=== PATIENT | female | born 1990 | race Caucasian/White ===

== ENCOUNTER → 2017-04-22 | Outpatient (CLI) | payer OTHER ==
[~2017-04-22] MED LIST: ACET50TA PO; ALBU20IN INH; AUGM875T27 PO; IBUP80TA PO; LEVA750T7 PO; NICO14DI3 TD; PRED10TA PO; PRED20TA PO; PRED5TA PO; PRENTAB74 PO; SYMB16INH INH; XOPEAER IN; ZOFR20TA PO; ventolin hfa INH
--- NOTE | 2017-04-22 21:03 | REP ---
Clinical: Pain. Technique: AP, lateral, bilateral oblique views right first digit . Findings: The osseous structures and joint spaces are intact and normal. There is no evidence for acute fracture or dislocation. Surrounding soft tissues are unremarkable. No subcutaneous emphysema or radiodense foreign body. Impression: Essentially normal examination . No acute fracture or dislocation. Signed by George Gee MD 04/22/2017 05:55 P
== END ==
LOC: M RAD 19:56
PROVIDERS: ATTEND Physician Assistant
DX: M79.644 Pain in right finger(s) (principal)

== ENCOUNTER → 2017-07-01 | Outpatient (REF) | payer OTHER | LOC: M LAB REF 11:55 | DX: L02.511 Cutaneous abscess of right hand (principal) | CPT/HCPCS: 87070 ==

== ENCOUNTER → 2018-01-11 | Outpatient (CLI) | payer OTHER ==
[2018-01-12 11:01] LABS: BASO # 0.1 10^3/uL (0.0-0.2); BASO % 0.5 % (0.0-1.0); EOS # 0.3 10^3/uL (0.0-0.50); EOS % 1.9 % (0.0-3.0); HEMATOCRIT 40.3 % (36.0-47.0); HEMOGLOBIN 13.4 g/dl (12.0-15.5); IMMATURE GRANULOCYTE % 0.5 % (0-3.0); LYMPH % 15.3 % (24.0-44.0); MEAN CORPUSCULAR HEMOGLOBIN 29.7 pg (27.0-33.0); MEAN CORPUSCULAR HGB CONC 33.3 g/dl (32.0-36.5); MEAN CORPUSCULAR VOLUME 89.4 fl (80.0-96.0); MONO # 1.2 10^3/uL (0.0-0.8); MONO % 8.9 % (0.0-5.0); NEUTROPHILS # 9.6 10^3/uL (1.8-7.7); NEUTROPHILS % 72.9 % (36.0-66.0); PLATELET COUNT, AUTOMATED 314 10^3/uL (150-450); RED BLOOD COUNT 4.51 10^6/uL (4.00-5.40); RED CELL DISTRIBUTION WIDTH 13.5 % (11.5-14.5); WHITE BLOOD COUNT 13.2 10^3/uL (4.0-10.0)
[2018-01-12 13:52] LABS: CHLAMYDIA DNA AMPLIFICATION NEGATIVE (NEGATIVE); GC DNA AMPLIFICATION NEGATIVE (NEGATIVE)
[2018-01-12 16:10] LABS: HEPATITIS C VIRUS ABY INDEX 0.2 INDEX (<0.8)
[2018-01-12 16:10] LABS: HBsAg Prenatal NEGATIVE (NEGATIVE)
[2018-01-12 16:11] LABS: RUBELLA IgG QUALITATIVE IMMUNE (IMMUNE)
[2018-01-13 19:33] LABS: HIV 1&2 SCREEN CENTAUR NEGATIVE (NEGATIVE)
== END ==
LOC: M SMT 13:54
DX: Z34.81 Encounter for supervision of other normal pregnancy, first trimester (principal); Z3A.08 8 weeks gestation of pregnancy
CPT/HCPCS: 86762

== ENCOUNTER → 2018-03-05 | Outpatient (CLI) | payer OTHER ==
[2018-03-05 16:43] LABS: BASO % 0.3 % (0.0-1.0); EOS # 0.3 10^3/uL (0.0-0.50); EOS % 2.4 % (0.0-3.0); HEMATOCRIT 34.7 % (36.0-47.0); HEMOGLOBIN 11.6 g/dl (12.0-15.5); IMMATURE GRANULOCYTE % 0.5 % (0-3.0); LYMPH # 2.8 10^3/uL (1.5-6.5); MEAN CORPUSCULAR HEMOGLOBIN 30.1 pg (27.0-33.0); MEAN CORPUSCULAR HGB CONC 33.4 g/dl (32.0-36.5); MEAN CORPUSCULAR VOLUME 90.1 fl (80.0-96.0); MONO # 0.8 10^3/uL (0.0-0.8); MONO % 6.2 % (0.0-5.0); NEUTROPHILS # 8.7 10^3/uL (1.8-7.7); NEUTROPHILS % 68.6 % (36.0-66.0); PLATELET COUNT, AUTOMATED 304 10^3/uL (150-450); RED BLOOD COUNT 3.85 10^6/uL (4.00-5.40); RED CELL DISTRIBUTION WIDTH 13.2 % (11.5-14.5); WHITE BLOOD COUNT 12.7 10^3/uL (4.0-10.0)
[2018-03-05 17:11] LABS: ALBUMIN 3.6 GM/DL (3.2-5.2); ALBUMIN/GLOBULIN RATIO 1.06 (1.00-1.93); ALKALINE PHOSPHATASE 70 U/L (45-117); ALT/SGPT 38 U/L (12-78); ANION GAP 8 MEQ/L (8-16); AST/SGOT 25 U/L (7-37); BILIRUBIN,TOTAL 0.3 MG/DL (0.2-1.0); BLOOD UREA NITROGEN 6 MG/DL (7-18); CALCIUM LEVEL 8.8 MG/DL (8.5-10.1); CARBON DIOXIDE LEVEL 26 MEQ/L (21-32); CHLORIDE LEVEL 104 MEQ/L (98-107); FREE T4 0.95 NG/DL (0.76-1.46); GLOMERULAR FILTRATION RATE > 60.0 (>60); GLUCOSE, FASTING 60 MG/DL (70-100); POTASSIUM SERUM 3.9 MEQ/L (3.5-5.1); SODIUM LEVEL 138 MEQ/L (136-145)
== END ==
LOC: M WUC 14:44
DX: M54.5 Low back pain (principal)
CPT/HCPCS: 84443

== ENCOUNTER → 2018-03-11 | Outpatient (CLI) | payer OTHER | LOC: M RAD 11:52 | DX: Z36.89 Encounter for other specified antenatal screening (principal); Z3A.17 17 weeks gestation of pregnancy | CPT/HCPCS: 76817 ==

== ENCOUNTER → 2018-04-01 | Outpatient (CLI) | payer OTHER | LOC: M RAD 17:05 | DX: O44.42 Low lying placenta NOS or without hemorrhage, second trimester (principal); Z36.89 Encounter for other specified antenatal screening; Z3A.20 20 weeks gestation of pregnancy | CPT/HCPCS: 76817 ==

== ENCOUNTER → 2018-05-17 | Outpatient (CLI) | payer OTHER ==
[~2018-05-17] MED LIST changes: -ZOFR20TA PO; +ZOFR4TAB16 PO
[2018-05-17 13:39] LABS: BASO # 0.1 10^3/uL (0.0-0.2); BASO % 0.7 % (0.0-1.0); EOS # 0.2 10^3/uL (0.0-0.50); EOS % 1.6 % (0.0-3.0); HEMATOCRIT 31.8 % (36.0-47.0); HEMOGLOBIN 10.3 g/dl (12.0-15.5); LYMPH # 1.9 10^3/uL (1.5-6.5); LYMPH % 13.4 % (24.0-44.0); MEAN CORPUSCULAR HEMOGLOBIN 30.7 pg (27.0-33.0); MEAN CORPUSCULAR HGB CONC 32.4 g/dl (32.0-36.5); MEAN CORPUSCULAR VOLUME 94.9 fl (80.0-96.0); MONO # 0.7 10^3/uL (0.0-0.8); NEUTROPHILS # 10.6 10^3/uL (1.8-7.7); NEUTROPHILS % 76.2 % (36.0-66.0); PLATELET COUNT, AUTOMATED 206 10^3/uL (150-450); RED BLOOD COUNT 3.35 10^6/uL (4.00-5.40); WHITE BLOOD COUNT 13.8 10^3/uL (4.0-10.0)
== END ==
LOC: M LAB 11:47
PROVIDERS: ATTEND Specialist
DX: Z36.89 Encounter for other specified antenatal screening (principal)

== ENCOUNTER → 2018-05-18 | Outpatient (CLI) | payer OTHER ==
--- NOTE | 2018-05-19 02:32 | NUR ---
L&D Triage Note Reason for visit: labor check Subjective 27 year old at 25+3 weeks gestation. Complains of frequent, painful contractions and questions LOF. Had intercourse earlier today. Denies vaginal bleeding or continual loss of fluid. Reports regular, frequent movement. course uncomplicated thus far. 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 No murmurs, gallops, rubs Lungs: Clear to auscultation bilaterally. No wheezes, crackles, rales or rhonchi Abdomen: Uterine fundus , nontender and fundal height consistent with gestational age. No guarding or rebound tenderness. Pelvic: SSE: closed, no pooling/blood/foul odor/abnormal discharge. Neg nitrazine/ferning. SVE: closed/long/high TVUS,sullivan: CL 3.7cm, no funneling or dynamic changes. Cephalic, MVP >2cm. Extremities: nonedematous, nontender. External monitoring/NST:Reactive, normal baseline, moderate variability, no decelerations. Tocodynamometer: contractions are not present Assessment/Plan 27 year old at 25+3 weeks gestation. No evidence of active labor or ruptured membranes. Reassuring maternal and status. -Routine labor, movement/kick count, and obstetric emergency precautions reviewed. -Follow-up with appointment as currently scheduled. Dr. Jose Carlos Silva, Efra.O., F.A.C.O.G.
== END ==
LOC: M LDO 22:09
PROVIDERS: ATTEND Obstetrics & Gynecology
DX: O47.9 False labor, unspecified (principal); Z3A.25 25 weeks gestation of pregnancy

== ENCOUNTER → 2018-06-21 | Outpatient (CLI) | payer OTHER ==
--- NOTE | 2018-06-22 08:29 | REP ---
Clinical: History of low-lying placenta. Comparison: 04/01/2018 . Findings: Examination demonstrates a single live intrauterine in cephalic presentation. motion is identified by technologist. Placenta is noted posterior and grade II without evidence for placenta previa or abruption. Placental tip 3.1 cm from the closed internal os. Amniotic fluid volume is normal. Cervix measures 4.0 cm in length and appears closed. No evidence for nuchal cord. Gestational age by LMP 31 weeks 4 day with YAHIR 08/19/1989 . Gestational age by current measurements the 31 weeks 0 days with YAHIR 08/23/2018 . FHR equals 139 beats per minute. Estimated weight 1699 grams ( 33rd percentile). Amniotic fluid index: 17.6 cm (8.7 - 24.0) Umbilical cord SD ratio: 3.20 (2.50 - 3.50). Small left hydrocele warrants evaluation. Impression: 1. Single live intrauterine in cephalic presentation demonstrating appropriate interval growth. 2. Placenta is identified posteriorly, grade II and without evidence for placenta previa or abruption. 3. Small left hydrocele likely transient but warrant evaluation. Electronically Signed by George Gee MD 06/22/2018 08:20 A
== END ==
LOC: M RAD 13:10
PROVIDERS: ATTEND Specialist
DX: O44.43 Low lying placenta NOS or without hemorrhage, third trimester (principal); O35.8XX0 Maternal care for other (suspected) fetal abnormality and damage, not applicable or unspecified; Z3A.31 31 weeks gestation of pregnancy

== ENCOUNTER → 2018-07-22 | Outpatient (REF) | payer OTHER | LOC: M LAB REF 13:05 | PROVIDERS: ATTEND Advanced Practice Midwife | DX: Z34.83 Encounter for supervision of other normal pregnancy, third trimester (principal) ==

== ENCOUNTER 2018-08-13 23:47 | Inpatient (IN) | payer OTHER ==
[~2018-08-13] VITALS: Ht 154.9 cm; Wt 63.0 kg
[~2018-08-13 23:47] MED LIST changes: -ACET50TA PO; +MAPA500T17 PO; +PRED-351 PO; -PRED10TA PO
[2018-08-14] VITALS (7 sets, daily range): BP systolic 109–130; BP diastolic 55–76
[2018-08-14] MEDS ORDERED: LACTATED RINGER'S 1000 ML IV STA (00:28)
[2018-08-14] MEDS ORDERED: LR 1,000 ML IV SCH (00:28)
[2018-08-14] MEDS ORDERED: OXYTOCIN 30 UNITS IN 0.9% NaCl 500ML IV BAG (J2590) As Ordered ONE (00:29)
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
[2018-08-14 00:56] LABS: HEMATOCRIT 34.7 % (36.0-47.0); HEMOGLOBIN 11.7 g/dl (12.0-15.5); MEAN CORPUSCULAR HEMOGLOBIN 29.8 pg (27.0-33.0); MEAN CORPUSCULAR HGB CONC 33.7 g/dl (32.0-36.5); MEAN CORPUSCULAR VOLUME 88.3 fl (80.0-96.0); PLATELET COUNT, AUTOMATED 179 10^3/uL (150-450); RED BLOOD COUNT 3.93 10^6/uL (4.00-5.40); WHITE BLOOD COUNT 19.1 10^3/uL (4.0-10.0)
[2018-08-14] MEDS ORDERED: OXYTOCIN DRIP 30 UNITS in APPROPRIATE DILUENT 1 EA IV SCH (01:47)
[2018-08-14] MEDS ORDERED: RHOGAM 300 MCG (1500 IU) INJ (J2790) IM SCH (02:00)
[2018-08-14] MEDS ORDERED: DIBUCAINE 1% OINTMENT 30GM TOP PRN (02:00)
[2018-08-14] MEDS ORDERED: METHYLERGONOVINE MALEATE 0.2 MG/ML VIAL (J2210) IM ONE (02:00)
[2018-08-14] MEDS ORDERED: DOCUSATE SODIUM 100 MG CAP PO PRN (02:00)
[2018-08-14] MEDS ORDERED: MOM 30ML SUSPENSION UDC PO PRN (02:00)
[2018-08-14] MEDS ORDERED: MEASLES,MUMPS,RUBELLA VACCINE INJ (MMR-II) (90707) SC SCH (02:00)
[2018-08-14] MEDS ORDERED: ACETAMINOPHEN 500 MG TAB PO PRN (02:00)
[2018-08-14 02:03] LABS: CORD GAS ABE A -6.4; CORD GAS ABE V -5.5; CORD GAS HCO3 A 23.8 MEQ/L; CORD GAS HCO3 V 21.1 MEQ/L; CORD GAS O2 SAT A 43.2 %; CORD GAS O2 SAT V 52.6 %; CORD GAS PCO2 A 66.1 mmHg; CORD GAS PCO2 V 44.7 mmHg; CORD GAS PH A 7.175 UNITS; CORD GAS PH V 7.291 UNITS; CORD GAS PO2 A 20.6 mmHg; CORD GAS PO2 V 20.6 mmHg; CORD GAS SBC V 18.9 MEQ/L; CORD GAS TCO2 A 25.9 MEQ/L; CORD GAS TCO2 V 22.4 MEQ/L
--- NOTE | 2018-08-14 02:10 | DNPDOC ---
[facility] Delivery Note Delivery Note DATE OF DELIVERY: August 14, 2018 PREDELIVERY DIAGNOSIS: 39+2/7 weeks' gestation and labor. POST DELIVERY DIAGNOSIS: Delivered. PROCEDURE: Spontaneous vaginal delivery. PROVIDER: Elizabeth Brito CNM ANESTHESIA: None. ESTIMATED BLOOD LOSS: 400 mL. FINDINGS: 7 pound 8 ounce, 3390gm male infant, Score 3/7/10, occult body cord times 1. DELIVERY SUMMARY: Patient is a 28-year-old 4 now para 4-0-0-4 who was admitted to labor and delivery for active labor. She reported onset UC 2211 tonight. Upon arrival she was found to be 6-7 cm by nursing. Initial provider exam shortly after was 8cm. SROM small amount clear fluid 0043. FH decels to 60's, O2 via mask. Viable male delivered precipitously MUNIR, compound with left anterior arm though occult body cord @ 0107. Slow to transition, cord doubly clamped and cut, to warmer for stimulation and evaluation. Apgars 3/7/10. Cord gases arterial 7.175. BE -6.4 and venous 7.291, BE -5.5. Placenta moreira, intact with 3vessel cord @ 0115. Fundus firmed with massage and IV pitocin bolus. Methergine 0.2mg IM given for persistent trickling with good hemostasis. Perineum intact. Sponge sharp and instrument count correct. Elizabeth Brito CNM Aug 14, 2018 01:57
[2018-08-14] MEDS: METHYLERGONOVINE MALEATE 0.2 MG TAB PO SCH ×4 (05:23→23:39)
[2018-08-14] MEDS: IBUPROFEN 800 MG TAB PO PRN ×2 (05:24→18:27)
[2018-08-14] MEDS: PRENATAL VITAMINS CHEWABLE TABLET PO SCH (08:23)
[2018-08-14] MEDS ORDERED: TENO30TAB PO (10:57)
[2018-08-14] MEDS ORDERED: PRENTAB9 PO (10:57)
[2018-08-15 06:00] VITALS: BP 96/52
[2018-08-15] MEDS ORDERED: METHYLERGONOVINE MALEATE 0.2 MG TAB PO PRN (06:00)
[2018-08-15] MEDS: PRENATAL VITAMINS CHEWABLE TABLET PO SCH (08:10)
[2018-08-15] MEDS ORDERED: INFLUENZA QUADRIVALENT PF VACCINE 0.5ML SYRINGE (90686) IM ONE (09:00)
[2018-08-15] MEDS ORDERED: ACET-683 PO (13:29)
[2018-08-15] MEDS ORDERED: IBUP80TA PO (13:29)
== END 2018-08-15 14:15 | disposition home or self-care (01) | DRG 560 ==
LOC: M LDO 23:47 → M LDI 08-14 00:27 → M OBS 08-14 03:12
PROVIDERS: ADMIT Advanced Practice Midwife; ATTEND Advanced Practice Midwife
PROC: 10E0XZZ Delivery of Products of Conception, External Approach (ICD-10-PCS; principal; 2018-08-14)
DX: O62.3 Precipitate labor (principal); O32.6XX0 Maternal care for compound presentation, not applicable or unspecified; Z3A.39 39 weeks gestation of pregnancy; O69.82X0 Labor and delivery complicated by other cord entanglement, without compression, not applicable or unspecified; Z37.0 Single live birth; O99.334 Smoking (tobacco) complicating childbirth; F17.210 Nicotine dependence, cigarettes, uncomplicated

== ENCOUNTER → 2018-10-15 | Outpatient (REF) | payer OTHER ==
[~2018-10-15] MED LIST changes: +ACET-683 PO; +PRENTAB9 PO; +TENO30TAB PO
== END ==
LOC: M LAB REF 17:18
PROVIDERS: ATTEND Specialist
DX: Z12.4 Encounter for screening for malignant neoplasm of cervix (principal)

== ENCOUNTER → 2020-03-19 | Outpatient (CLI) | payer OTHER ==
--- NOTE | 2020-03-20 04:53 | REP ---
INDICATION: HEPATOMAGLY COMPARISON: None. TECHNIQUE: Real time pineda scale ultrasound examination using curved array transducer. FINDINGS: Liver and pancreas are normal in contour, size, and echogenicity without focal hepatic or pancreatic abnormalities appreciated. No evidence for hepatomegaly or hepatosteatosis by current examination. The gallbladder is normal and without gallstones, wall thickening, or pericholecystic fluid. No biliary ductal dilatation is appreciated and the common bile duct measures 3.0 mm mm diameter. Right kidney is normal in reniform shape without hydronephrosis and measures 9.5 x 4.9 x 3.4 cm. No ascites in the visualized right upper quadrant. IMPRESSION: Normal limited right upper quadrant ultrasound <Electronically signed by George Gee > 03/20/20 [id number]
== END ==
LOC: M RAD 09:11
PROVIDERS: ATTEND Internal Medicine Gastroenterology
DX: R93.2 Abnormal findings on diagnostic imaging of liver and biliary tract (principal)

== ENCOUNTER → 2020-04-14 | Outpatient (CLI) | payer OTHER ==
[~2020-04-14] MED LIST changes: +VENTAER INH; +ZOLO25TA PO
== END ==
LOC: M LABSMTC 10:34
PROVIDERS: ATTEND Anesthesiology
DX: Z01.818 Encounter for other preprocedural examination (principal); Z20.828 Contact with and (suspected) exposure to other viral communicable diseases